=== PATIENT | male | born 1950 | race African-American/Black ===

== ENCOUNTER 2021-01-27 12:30 | Emergency (ER) | payer SELFPAY ==
--- NOTE | ~2021-01-27 | CT_ITS ---
EXAMINATION: CT brain wo con DATE: 01/27/2021 13:26 INDICATION: Confusion TECHNIQUE: Computed tomography (CT) of the head was performed without intravenous contrast. Sagittal and coronal reconstructions were performed. The mA was adjusted according to patient size. Iterative reconstruction technique was employed. The dose-length product was 681.00 mGy-cm. COMPARISON: None FINDINGS: No acute intracranial hemorrhage, acute infarction or abnormal extra axial fluid collection. There is mild scattered white matter hypoattenuation consistent with chronic small vessel ischemic disease. S ymmetric prominence of the sulci and ventricles consistent with mild age-appropriate diffuse cerebral volume loss. Ventricles are normal and symmetric. No mass/mass effect. The orbits, paranasal sinuses and mastoid air cells are normal. IMPRESSION: 1. No acute intracranial process. 2. Age-related changes including mild diffuse volume loss and mild scattered white matter hypoattenua tion consistent with chronic small vessel ischemic disease. Reviewed, dictated and finalized at location A. IMPRESSION: 1. No acute intracranial process. 2. Age-related changes including mild diffuse volume loss and mild scattered wh ite matter hypoattenuation consistent with chronic small vessel ischemic diseas e.
[2021-01-27 12:25] VITALS: BP 135/82; PULSE 79; RESP 17; TEMP 36.9; O2SAT 99
--- NOTE | 2021-01-27 12:49 | ECG_ITS ---
Measurements Intervals [place] Rate: 71 P: 72 [place]: 201 QRS: -3 QRSD: 118 T: 70 QT: 371 QTc: 404 Interpretive Statements SINUS RHYTHM POSSIBLE LEFT ATRIAL ENLARGEMENT INCOMPLETE RIGHT BUNDLE BRANCH BLOCK CANNOT RULE OUT SEPTAL INFARCT, AGE INDETERMINATE CONSIDER HIGH LATERAL INFARCT, AGE INDETERMINATE BASELINE ARTIFACT- V6 ABNORMAL ECG Electronically Signed On 01-27-2021 19:59:50 CDT by Deo Dee D.O.
--- NOTE | 2021-01-27 12:53 | ED.AMS ---
HPI - Altered Mental Status General Chief Complaint: Altered Mental Status Stated Complaint: ams, ETOH? Time Seen by Provider: 01/27/21 12:33 Source: EMS and RN notes reviewed History of Present Illness HPI narrative: Patient is brought in for altered mental status. Patient was found wandering around his yard. Patient reports he feels fine is not sure why he brought it was brought in. He does report he did drink 2 large beers denies any focal areas of pain he denies any trauma denies any headaches nausea or vomiting. He does report he drinks approximately two 24 ounce beers a day. Reports he used to do foud 24 ounce beers a day but has cut back to 2 Review of Systems Review of Systems: ROS unobtainable: Yes unobtainable due to mental status Exam Narrative: GENERAL: Well-appearing, well-nourished, and in no acute distress. HEAD: Normocephalic, atraumatic. EYES: PERRLA and EOMI. ENT: Nares clear, no rhinorrhea or epistaxis. Mucous membranes moist. NECK: Supple. No masses. No JVD CHEST: Clear to auscultation. No respiratory distress. No wheezes rales or rhonchi HEART: Regular rate and rhythm. No murmur heard. Normal peripheral pulses. ABDOMEN: Soft, nontender, nondistended, normal active bowel sounds. EXTREMITIES: Normal range of motion. No edema. SKIN: Warm, dry, no rash. NEURO: No focal deficits. Alert and oriented x3. PSYCH: Normal mood and affect. Course Reevaluation(s) Reevaluation #1: Patient is resting comfortably and is anxious to leave. He is alert reports he was just drinking per his usual routine. Family is at bedside and they report that patient has a known history of heavy drinking. Date: 01/27/21 Time: 14:25 Vital Signs Vital signs: Vital Signs Temperature 36.9 C 01/27/21 12:25 Pulse Rate 79 01/27/21 12:25 Respiratory Rate 17 01/27/21 12:25 Blood Pressure 135/82 01/27/21 12:25 Pulse Oximetry 99 01/27/21 12:25 Temperature 36.9 C 01/27/21 12:25 Pulse Rate 79 01/27/21 12:25 Respiratory Rate 17 01/27/21 12:25 Blood Pressure 135/82 01/27/21 12:25 Pulse Oximetry 99 01/27/21 12:25 MDM - Altered Mental Status MDM Narrative Medical decision making narrative: H&P as above, vss, pt looks clinically well, exam without evidence of trauma significant trauma, labs with elevation in EtOH otherwise clinically unremarkable, img clinically unremarkable, additional labs/img considered. symptomatic relief available as needed, on reevaluation pt continues to looks clinically well. Alcohol intoxication. Patient is anxious to go home. Results discussed with family. Family reported he has a known significant history of alcohol use. Given patient's wanting to go home work-up only positive for alcohol use patient is okay to go home. Family reported they would stay with him and are comfortable monitoring him this appears to be isolated alcohol intoxication. Low concern for additional drug abuse intracranial hemorrhage, severe sepsis, meningitis, encephalitis. Were instructed return anytime if they had additional concerns about managing alcohol intoxication or there is a change in his mental status. Lab Data Result diagrams: 01/27/21 13:01 01/27/21 13:01 Labs: Lab Results 01/27/21 01/27/21 01/27/21 Range/Units 13:01 13:01 13:01 WBC 5.1 (4.5-10.0) K/mm3 RBC 3.70 L (4.6-6.20) M/mm3 Hgb 11.8 L (14.0-18.0) g/dL Hct 34.9 L (42.0-52.0) % MCV 94.3 (80-100) fl MCH 31.9 (26-34) pg MCHC 33.8 (32-36) g/dl RDW 15.9 H (11.5-14.5) % Plt Count 145 L (150-375) k/mm3 MPV 9.6 (7.4-10.4) fl Immature Gran % (Auto) 0.2 (0-0.5) % Neut % (Auto) 44.0 L (45.5-73.1) % Lymph % (Auto) 38.1 (18.3-44.2) % [place] % (Auto) 15.7 H (2.6-8.5) % Eos % (Auto) 0.6 (0-4.4) % Baso % (Auto) 1.4 H (0.2-1.2) % Lymph # (Auto) 1.94 (0.9-3.2) K/mm3 [place] # (Auto) 0.8 H (0.1-0.6) K/mm3 Eos # (Auto) 0.0 (0-0.3)
[2021-01-27 13:08] LABS: Basophils Absolute Auto 0.1 K/mm3 (0.0-0.1); Basophils Percent Auto 1.4 % (0.2-1.2); Eosinophils Percent Auto 0.6 % (0-4.4); Hematocrit 34.9 % (42.0-52.0); Hemoglobin 11.8 g/dL (14.0-18.0); Immature Granulocyte Absolute 0.01 K/mm3 (0.00-0.031); Immature Granulocyte Percent A 0.2 % (0-0.5); Lymphocytes Absolute Auto 1.94 K/mm3 (0.9-3.2); Lymphocytes Percent Auto 38.1 % (18.3-44.2); Mean Corpuscular HGB Conc 33.8 g/dl (32-36); Mean Corpuscular Hemoglobin 31.9 pg (26-34); Mean Corpuscular Volume 94.3 fl (80-100); Mean Platelet Volume 9.6 fl (7.4-10.4); Monocytes Absolute Auto 0.8 K/mm3 (0.1-0.6); Monocytes Percent Auto 15.7 % (2.6-8.5); Neutrophils Absolute Auto 2.2 K/mm3 (1.3-6.7); Platelet Count Result 145 k/mm3 (150-375); Red Cell Distribution Width 15.9 % (11.5-14.5); White Blood Count 5.1 K/mm3 (4.5-10.0)
[2021-01-27 13:17] LABS: Alanine Aminotransferase 37 U/L (4-50); Albumin Level 4.1 g/dL (3.5-5.1); Alkaline Phosphatase 115 U/L (38-126); Anion Gap 12 mmol/L (8-16); Aspartate Amino Transferase 67 U/L (17-59); Bilirubin,Total 0.4 mg/dL (0.2-1.3); Blood Urea Nitrogen 5 mg/dL (9-20); Calcium 8.7 mg/dL (8.4-10.2); Carbon Dioxide 20 mmol/L (22-30); Chloride 103 mmol/L (98-107); Estimated CRCL calculation 87 ml/min; Estimated Glomerular Filt Rate > 60; Glucose 133 mg/dL (65-110); Potassium 3.7 mmol/L (3.4-5.0); Sodium 135 mmol/L (137-145)
[2021-01-27 13:28] LABS: Acetaminophen < 10 ug/mL (10-30); Ammonia < 9 umol/L (9-30); Salicylate < 1.0 mg/dL (2-20)
[2021-01-27 13:29] LABS: Ethanol 433 mg/dL (<10)
[2021-01-27] MEDS: SODIUM CHLORIDE 0.9% IV 1,000 ML 999 ML IV CONT (13:33)
--- NOTE | 2021-01-27 13:33 | PC.NURSE ---
@1300 Contacted [facility] for pt family contact information as patient is unable to tell staff at this time. They state he has a brother Arik in [place] and will have [place] [employer] drive by his residence to let him know patient is here. @[id number] Patients brother called department, states he will be on his up to sit with patient.
[2021-01-27 14:00] LABS: Add Urine Microscopic? NO; Appearance Urine Clear (Clear); Bilirubin Urine Negative (Negative); Blood Urine Negative (Negative); Color Urine Straw (Yellow); Glucose Urine UA Negative (Negative); Ketones Urine Negative (Negative); Leukocyte Esterase Ur Negative LEU/UL (Negative); Nitrate Urine Negative (Negative); Protein Urine Negative (Negative); Urobilinogen Urine Negative mg/dL (<2.0)
[2021-01-27 14:02] LABS: Specific Grav Ur 1.004 (1.001-1.035)
[2021-01-27 14:20] LABS: Amphetamine Screen Urine Negative (Negative); Barbiturate Screen Urine Negative (Negative); Benzodiazepines Screen Urine Negative (Negative); Cannabinoid Screen Urine Negative (Negative); Cocaine Screen Urine Negative (Negative); Methadone Screen Urine Negative (Negative); Opiate Screen Urine Negative (Negative); Phencyclidine Screen Urine Negative (Negative)
== END 2021-01-27 14:49 | disposition home or self-care (01) ==
LOC: ANHED 14:38
PROVIDERS: Emergency Provider Emergency Medicine; PCP Family Medicine
DX: F10.120 Alcohol abuse with intoxication, uncomplicated (principal); Y90.8 Blood alcohol level of 240 mg/100 ml or more; I45.10 Unspecified right bundle-branch block; R94.31 Abnormal electrocardiogram [ECG] [EKG]
CPT/HCPCS: 36415; 70450; 80053; 80307; 81003; 82140; 85025; 93005; 96360; 99284; J7030

== ENCOUNTER 2022-03-14 09:31 | Emergency (ER) | payer OTHER, SELFPAY ==
--- NOTE | ~2022-03-14 | CT_ITS ---
EXAMINATION: CT brain wo con DATE: 03/14/2022 10:19 INDICATION: Headache. Fall. TECHNIQUE: Computed tomography (CT) of the head was performed without intravenous contrast. The mA wa s adjusted according to patient size. Iterative reconstruction technique was employed. The dose-lengt h product was 605.33 mGy-cm. COMPARISON: None FINDINGS: There are scattered areas of low attenuation in the cerebral white matter, which is within normal limits for the patient's age. There is no intracranial hemorrhage, acute infarction, or abnorm al intracranial mass lesion. The ventricles are normal in size. The orbits are normal. There is mucos al thickening in the right ethmoid sinuses. The mastoid air cells are normal. IMPRESSION: 1. Normal aging brain. Reviewed, dictated and finalized at location A. IMPRESSION: 1. Normal aging brain.
--- NOTE | ~2022-03-14 | CT_ITS ---
EXAMINATION: CT cervical spine wo con DATE: 03/14/2022 10:19 INDICATION: Neck pain. Fall. TECHNIQUE: Computed tomography (CT) of the cervical spine was performed without intravenous contrast. Automated exposure control and iterative reconstruction technique were employed. The dose-length pro duct was 169.08 mGy-cm. COMPARISON: None FINDINGS: There is mild emphysema. There is kyphosis of cervical spine. Vertebral body heights are no rmal. There is moderately decreased disc height at C3-C4 and mildly decreased disc height from C4-C5 through C7-T1. There are bridging endplate osteophytes from C3 to C7, consistent with diffuse idiopat hic skeletal hyperostosis (DISH). The following disc levels are specifically discussed: C2-C3: There is mild bilateral uncovertebral joint osteoarthritis. There is moderate facet joint oste oarthritis. There is ankylosis of left facet joint with severe hypertrophy. There is mild bilateral n eural foraminal stenosis. There is mild central canal stenosis. C3-C4: There is mild right and moderate left uncovertebral joint osteoarthritis. There is mild bilate ral facet joint osteoarthritis. There is mild right and moderate left neural foraminal stenosis. Ther e is moderate central canal stenosis. C4-C5: There is ankylosis of the uncovertebral joints with mild hypertrophy. There is mild bilateral facet joint osteoarthritis. There is mild bilateral neural foraminal stenosis. There is moderate cent ral canal stenosis. C5-C6: There is severe right and moderate left uncovertebral joint osteoarthritis. There is mild bila teral facet joint osteoarthritis. There is moderate right and mild left neural foraminal stenosis. Th ere is mild central canal stenosis. C6-C7: There is moderate and severe left uncovertebral joint osteoarthritis. There is mild bilateral facet joint osteoarthritis. There is mild right and moderate left neural foraminal stenosis. There is mild central canal stenosis. C7-T1: There is moderate right and mild left uncovertebral joint osteoarthritis. There is severe bila teral facet joint osteoarthritis. There is moderate right and mild left neural foraminal stenosis. Th ere is no central canal stenosis. IMPRESSION: 1. No fracture. 2. Moderate cervical spondylosis. 3. DISH. Reviewed, dictated and finalized at location A.
[2022-03-14 09:33] VITALS: BP 167/96; PULSE 86; RESP 16; TEMP 36.2; O2SAT 100
[2022-03-14] MEDS: CYCLOBENZAPRINE HCL 10 MG TABLET PO (11:09)
[2022-03-14] MEDS: HYDROmorphone HCL INJ (*CRX) 1 MG/ML SYR 0.5 MG IV PUSH (11:10)
--- NOTE | 2022-03-14 11:37 | ED.GENADULT ---
HPI - General Adult General Chief complaint: Unspecified Stated complaint: STIFF NECK Time Seen by Provider: 03/14/22 09:35 History of Present Illness HPI narrative: 71-year-old male presented to the emergency department for evaluation of cute onset of neck pain. Patient states he had a fall onto concrete approximately 1 week ago. Patient did strike his head but denies any loss of consciousness. Patient states he was not having any neck pain until he woke up this morning. Patient reports pain is worsened when he turns his head. Patient denies any associated numbness or weakness. Related Data Allergies Allergy/AdvReac Type Severity Reaction Status Date / Time No Known Allergies Allergy Verified 03/14/22 11:10 Review of Systems Review of Systems: CONSTITUTIONAL: Denies fever, chills, or sweats. EYES: Denies visual changes, redness, or discharge. ENT: Denies rhinorrhea, congestion, sore throat, or otalgia. CARDIOVASCULAR: Denies chest pain, palpitations, or edema. RESPIRATORY: Denies cough or dyspnea. GASTROINTESTINAL: Denies abdominal pain, nausea, vomiting, or diarrhea. GENITOURINARY: Denies dysuria or hematuria. SKIN: Denies rash or itching. MUSCULOSKELETAL: Neck pain, see HPI NEUROLOGIC: Denies headache, numbness, or weakness. Exam Narrative: APPEARANCE: Well appearing, no pain, no distress, well-nourished. HEAD: normocephalic, atraumatic. EYES: PERRLA/EOMI, conjunctivae clear. NOSE: Normal no drainage NECK: Midline neck tenderness to palpation. Decreased range of motion RESPIRATORY: Airway patent, respirations nonlabored. Clear to auscultation bilaterally, no rales, rhonchi, wheezing. CARDIOVASCULAR: Regular rate and rhythm without murmurs rubs or gallops. ABDOMINAL: Soft, nontender, nondistended, normal bowel sounds MUSCULOSKELETAL: Moves all extremities. Strength/ROM intact, No edema, No calf tenderness. NEURO: Alert. Cranial nerves II through XII intact. Good gait. Good coordination SKIN: Warm, dry. Normal Color Course Course Emergency Course: Patient does feel improved with treatment. Patient's head and neck CT showed no acute fracture or dislocation. Vital Signs Vital signs: Vital Signs Temperature 97.2 F L 03/14/22 09:33 Pulse Rate 86 03/14/22 09:33 Respiratory Rate 16 03/14/22 09:33 Blood Pressure 167/96 H 03/14/22 09:33 Pulse Oximetry 100 03/14/22 09:33 Oxygen Delivery Room Air 03/14/22 09:33 Temperature 97.2 F L 03/14/22 09:33 Pulse Rate 88 03/14/22 12:48 Respiratory Rate 16 03/14/22 12:48 Blood Pressure 165/80 H 03/14/22 12:48 Pulse Oximetry 100 03/14/22 12:48 Oxygen Delivery Room Air 03/14/22 09:33 Medical Decision Making Vital Signs Vital Signs: Vital Signs Temperature 97.2 F L 03/14/22 09:33 Pulse Rate 86 03/14/22 09:33 Respiratory Rate 16 03/14/22 09:33 Blood Pressure 167/96 H 03/14/22 09:33 Pulse Oximetry 100 03/14/22 09:33 Oxygen Delivery Room Air 03/14/22 09:33 Temperature 97.2 F L 03/14/22 09:33 Pulse Rate 88 03/14/22 12:48 Respiratory Rate 16 03/14/22 12:48 Blood Pressure 165/80 H 03/14/22 12:48 Pulse Oximetry 100 03/14/22 12:48 Oxygen Delivery Room Air 03/14/22 09:33 Imaging Data Radiologist's impression: Impressions Head CT 03/14/22 10:19 IMPRESSION: 1. Normal aging brain. Cervical Spine CT 03/14/22 10:21 IMPRESSION: 1. No fracture. 2. Moderate cervical spondylosis. 3. DISH. Discharge Plan Discharge Clinical Impression: Acute neck pain Patient Disposition: Home, Self-Care Condition: Stable Instructions: Antibiotic Form, Acute Neck Pain (ED) Additional Instructions: Tylenol or Profen for pain control. Flexeril for muscle spasm. Have close follow-up with her primary care. Given your worsening symptoms please call or return to the emergency department. Prescriptions: New cyclobenzaprine 10 mg tablet 10 mg PO BID PRN (Reason: muscle sp
[2022-03-14 12:48] VITALS: BP 165/80; PULSE 88; RESP 16; O2SAT 100
== END 2022-03-14 12:45 | disposition home or self-care (01) ==
PROVIDERS: Emergency Provider Emergency Medicine
DX: M54.2 Cervicalgia (principal); M47.812 Spondylosis without myelopathy or radiculopathy, cervical region; M48.12 Ankylosing hyperostosis [Forestier], cervical region
CPT/HCPCS: 70450; 72125; 96374; 99284; A9270; J1170

== ENCOUNTER 2022-03-26 16:57 | Emergency (ER) | payer OTHER, SELFPAY ==
--- NOTE | ~2022-03-26 | CT_ITS ---
EXAMINATION: CT brain wo con DATE: 03/26/2022 17:50 INDICATION: Head injury. TECHNIQUE: Computed tomography (CT) of the head was performed without intravenous contrast. The mA wa s adjusted according to patient size. Iterative reconstruction technique was employed. The dose-lengt h product was 605.33 mGy-cm. COMPARISON: Head CT 03/14/2022 FINDINGS: There is no intracranial hemorrhage, acute infarction, or abnormal intracranial mass lesion . The ventricles are normal in size. There is mild mucosal thickening in the paranasal sinuses. The o rbits are normal. The mastoid air cells are normal. IMPRESSION: 1. Normal brain. Reviewed, dictated and finalized at location A. IMPRESSION: 1. Normal brain.
--- NOTE | ~2022-03-26 | CT_ITS ---
EXAMINATION: CT cervical spine wo con DATE: 03/26/2022 17:50 INDICATION: Head injury. TECHNIQUE: Computed tomography (CT) of the cervical spine was performed without intravenous contrast. Automated exposure control and iterative reconstruction technique were employed. The dose-length pro duct was 241.79 mGy-cm. COMPARISON: CT cervical spine 03/14/2022 FINDINGS: There is mild emphysema. There is kyphosis of cervical spine. Vertebral body heights are no rmal. There is moderately decreased disc height at C3-C4 and mildly decreased disc height from C4-C5 through C7-T1. There is a prominent osseous central canal stenosis in the cervical spine. The followi ng disc levels are specifically discussed: C2-C3: There is mild bilateral uncovertebral joint osteoarthritis. There is moderate right facet join t osteoarthritis. There is ankylosis of left facet joint with severe hypertrophy. There is mild bilat eral neural foraminal stenosis. There is mild central canal stenosis. C3-C4: There is moderate bilateral uncovertebral joint osteoarthritis. There is mild bilateral facet joint osteoarthritis. There is moderate bilateral neural foraminal stenosis. There is moderate centra l canal stenosis. C4-C5: There is moderate right and mild left uncovertebral joint osteoarthritis. There is mild bilate ral facet joint osteoarthritis. There is mild bilateral neural foraminal stenosis. There is moderate central canal stenosis. C5-C6: There is severe bilateral uncovertebral joint osteoarthritis. There is no facet joint osteoart hritis. There is moderate bilateral neural foraminal stenosis. There is mild central canal stenosis. C6-C7: There is moderate right and severe left uncovertebral joint osteoarthritis. There is mild bila teral facet joint osteoarthritis. There is mild right and moderate left neural foraminal stenosis. Th ere is moderate central canal stenosis. C7-T1: There is moderate bilateral uncovertebral joint osteoarthritis. There is severe bilateral face t joint osteoarthritis. There is moderate right and mild left neural foraminal stenosis. There is mil d central canal stenosis. IMPRESSION: 1. No fracture. 2. Moderate cervical spondylosis. Reviewed, dictated and finalized at location A.
[2022-03-26 16:55] VITALS: BP 138/84; PULSE 86; RESP 15; TEMP 36.2; O2SAT 100
--- NOTE | 2022-03-26 17:48 | ED.FALL ---
HPI - Fall General Chief Complaint: Fall <Veronica Lim PA-C - Last Filed: 03/26/22 18:11> Stated Complaint: fall 24 hrs ago/neck pain <Veronica Lim PA-C - Last Filed: 03/26/22 18:11> Time Seen by Provider: 03/26/22 17:07 <Veronica Lim PA-C - Last Filed: 03/26/22 18:11> Source: patient <Veronica Lim PA-C - Last Filed: 03/26/22 18:11> Mode of arrival: ambulatory <Veronica Lim PA-C - Last Filed: 03/26/22 18:11> Limitations: no limitations <Veronica Lim PA-C - Last Filed: 03/26/22 18:11> History of Present Illness HPI Narrative: This is a 71 year old male that presents to the ER after a fall two days ago with head injury. Reports he was at home and tripped and fell. Reports hitting his head. He did not lose consciousness. Reports since he has been having some neck pain. He is not on any blood thinners. Denies vision changes, vomiting, numbness, or weakness. <Veronica Lim PA-C - Last Filed: 03/26/22 18:11> Related Data Allergies/Adverse Reactions: Allergies Allergy/AdvReac Type Severity Reaction Status Date / Time No Known Allergies Allergy Verified 03/26/22 17:00 <Veronica Lim PA-C - Last Filed: 03/26/22 18:11> Review of Systems Review of Systems: CONSTITUTIONAL: Denies fever EYES: Denies visual changes GASTROINTESTINAL: Denies vomiting MUSCULOSKELETAL: Reports joint pain, and myalgia. NEUROLOGIC: Denies numbness, or weakness. <Veronica Lim PA-C - Last Filed: 03/26/22 18:11> All systems reviewed & are unremarkable except as noted in HPI and below <Veronica Lim PA-C - Last Filed: 03/26/22 18:11> PMFSH Past Medical History Medical History: Medical History (Updated 03/26/22 @ 18:10 by Veronica Lim PA-C) History of hypertension <Veronica Lim PA-C - Last Filed: 03/26/22 18:11> Social History Social History: Social History (Updated 03/26/22 @ 17:52 by Veronica Lim PA-C) Smoking status: Current every day smoker <Veronica Lim PA-C - Last Filed: 03/26/22 18:11> Exam Narrative: GENERAL: Well-appearing, well-nourished, and in no acute distress. HEAD: Normocephalic, atraumatic. EYES: PERRLA and EOMI. ENT: Nares clear, no rhinorrhea or epistaxis. Mucous membranes moist. Oropharynx without tonsillar hypertrophy exudate or other lesions. Bilateral TMs pearly moreau non-bulging NECK: Supple. No adenopathy or masses. CHEST: Clear to auscultation. No respiratory distress. No wheezes rales or rhonchi HEART: Regular rate and rhythm. No murmur heard. Normal peripheral pulses. BACK: No midline thoracic or lumbar spine tenderness EXTREMITIES: Normal range of motion. No edema or obvious deformity. SKIN: Warm, dry, no rash. NEURO: No focal deficits. Alert and oriented x3. Cranial nerves II through XII grossly intact PSYCH: Normal mood and affect <Veronica Lim PA-C - Last Filed: 03/26/22 18:11> Course DIRECTOR OF PHILANTHROPY/PA Physician Supervision For this patient encounter, I reviewed the DIRECTOR OF PHILANTHROPY or PA documentation, treatment plan, and medical decision making <Jared Barnhart MD - Last Filed: 03/26/22 21:39> Vital Signs Vital signs: Vital Signs Temperature 97.2 F L 03/26/22 16:55 Pulse Rate 86 03/26/22 16:55 Respiratory Rate 15 03/26/22 16:55 Blood Pressure 138/84 03/26/22 16:55 Pulse Oximetry 100 03/26/22 16:55 Oxygen Delivery Room Air 03/26/22 16:55 Temperature 97.2 F L 03/26/22 16:55 Pulse Rate 86 03/26/22 16:55 Respiratory Rate 15 03/26/22 16:55 Blood Pressure 138/84 03/26/22 16:55 Pulse Oximetry 100 03/26/22 16:55 Oxygen Delivery Room Air 03/26/22 16:55 <Veronica Lim PA-C - Last Filed: 03/26/22 18:11> Vital Signs Temperature 97.2 F L 03/26/22 16:55 Pulse Rate 86 03/26/22 16:55 Respiratory Rate 15 03/26/22 16:55 Blood Pressure 138/84 03/26/22 16:55 Pulse Oximetry 100 03/26/22 16:55 Oxygen Delivery Room Air 03/26/22 16:55 T
== END 2022-03-26 18:22 | disposition home or self-care (01) ==
LOC: ANHED 18:16
PROVIDERS: Emergency Provider Emergency Medicine; PCP Family Medicine
DX: S09.90XA Unspecified injury of head, initial encounter (principal); M54.2 Cervicalgia; W01.0XXA Fall on same level from slipping, tripping and stumbling without subsequent striking against object, initial encounter; I10 Essential (primary) hypertension
CPT/HCPCS: 70450; 72125; 99284